=== PATIENT | male | born 1955 | race Caucasian/White ===

== ENCOUNTER 2024-11-30 17:34 | Emergency (ER) | payer MEDICARE, OTHER ==
[~2024-11-30] VITALS: Ht 177.8 cm; Wt 91.8 kg
[2024-11-30 17:59] LABS: BASOPHILS 0.7 % (0.2-1.2); EOSINOPHILS 0.9 % (0.8-7.0); HEMATOCRIT 43.7 % (40.1-51.0); HEMOGLOBIN 14.9 g/dL (13.7-17.5); LYMPHOCYTES 12.6 % (21.8-53.1); MCH 34.7 PG (25.7-32.2); MCHC 34.1 g/dL (32.3-36.5); MCV 101.9 fL (79.0-92.2); MONOCYTES 6.8 % (5.3-12.2); NEUTROPHILS 78.6 % (34.0-67.9); PLATELET COUNT 242 K/uL (163-337); RBC 4.29 M/uL (4.63-6.08)
[2024-11-30] MEDS ORDERED: THIAMINE HCL 100 MG TAB PO ONE (18:15)
[2024-11-30] MEDS ORDERED: FOLIC ACID 1 MG TAB PO ONE (18:15)
[2024-11-30] MEDS ORDERED: ALBUTEROL/IPRATROPIUM 3 ML NEB INH ONE (18:15)
[2024-11-30] MEDS ORDERED: MULTIVITAMINS THERAPEUTIC 1 EA TAB PO ONE (18:15)
[2024-11-30 18:22] LABS: ALBUMIN 3.9 g/dL (3.4-5.0); ALCOHOL, MEDICAL <3 ng/dL (<3); ALKALINE PHOSPHATASE 110 U/L (46-116); ALT (SGPT) 28 U/L (14-59); ANION GAP 12.7 (7-21); AST (SGOT) 17 U/L (15-37); BILIRUBIN, TOTAL 0.6 mg/dL (0.2-1.0); BUN/CREATININE RATIO 11.11 (6.0-28.6); CALCIUM 8.9 mg/dL (8.5-10.1); CARBON DIOXIDE 29 mmol/L (21-32); CHLORIDE 102 mmol/L (98-107); GLOMERULAR FILTRATION RATE,EST 93 mL/min (>60); POTASSIUM 3.7 mmol/L (3.5-5.1); PROTEIN, TOTAL 7.8 g/dL (6.4-8.2); UREA NITROGEN 10 mg/dL (7-18)
[2024-11-30 21:33] VITALS: BP 120/64
== END 2024-11-30 21:34 | disposition home or self-care (01) ==
LOC: ED 17:34
PROVIDERS: Emergency Medicine
DX: R41.82 Altered mental status, unspecified (principal); F10.90 Alcohol use, unspecified, uncomplicated; J44.9 Chronic obstructive pulmonary disease, unspecified; Z88.0 Allergy status to penicillin
CPT/HCPCS: 36415; 70450; 80053; 80307; 83735; 85025; 94640; 99285-25; G0480

== ENCOUNTER 2025-02-07 16:29 | Emergency (ER) | payer MEDICARE ==
[~2025-02-07] VITALS: Ht 177.8 cm; Wt 91.8 kg
[2025-02-07] MEDS ORDERED: ALBUTEROL/IPRATROPIUM 3 ML NEB INH ONE (16:45)
[2025-02-07] MEDS ORDERED: predniSONE 20 MG TAB PO ONE (17:30)
[2025-02-07] MEDS ORDERED: ALBUTEROL SULFATE 8 GM HOME.PACK INH ONE (17:30)
[2025-02-07 17:39] VITALS: BP 140/70
== END 2025-02-07 17:40 | disposition home or self-care (01) ==
LOC: ED 16:29
DX: J44.1 Chronic obstructive pulmonary disease with (acute) exacerbation (principal); Z88.0 Allergy status to penicillin
CPT/HCPCS: 94640; 99284; J7512